=== PATIENT | female | born 1965 | race Caucasian/White ===

== ENCOUNTER → 2016-09-06 | Outpatient (CLI) | payer BC ==
[~2016-09-06] MED LIST: CYMB60CA3 PO; XANA0.5T PO; ZOLO50TA PO
[2016-09-06 07:44] LABS: MEAN CORPUSCULAR HEMOGLOBIN 28.9 pg (27.0-33.0); MEAN CORPUSCULAR HGB CONC 33.6 g/dl (32.0-36.5); RED CELL DISTRIBUTION WIDTH 13.6 % (11.5-14.5); WHITE BLOOD COUNT 6.6 K/mm3 (4.0-10.0)
[2016-09-06 08:09] LABS: ALBUMIN 3.9 GM/DL (3.2-5.2); ALBUMIN/GLOBULIN RATIO 1.26 (1.00-1.93); ALKALINE PHOSPHATASE 95 U/L (45-117); ALT/SGPT 20 U/L (12-78); ANION GAP 9 MEQ/L (8-16); AST/SGOT 14 U/L (15-37); BILIRUBIN,TOTAL 0.5 MG/DL (0.2-1.0); BLOOD UREA NITROGEN 11 MG/DL (7-18); CALCIUM LEVEL 8.9 MG/DL (8.5-10.1); CARBON DIOXIDE LEVEL 26 MEQ/L (21-32); CHLORIDE LEVEL 109 MEQ/L (98-107); CHOLESTEROL LEVEL 194 MG/DL (<200); GLOMERULAR FILTRATION RATE > 60.0 (>51); GLUCOSE, FASTING 99 MG/DL (70-105); SODIUM LEVEL 144 MEQ/L (136-145); TRIGLYCERIDES LEVEL 126 MG/DL (<150)
== END ==
LOC: M LAB 07:04
PROVIDERS: ATTEND Nurse Practitioner Adult Health
DX: Z00.00 Encounter for general adult medical examination without abnormal findings (principal); E03.9 Hypothyroidism, unspecified

== ENCOUNTER → 2016-09-11 | Outpatient (CLI) | payer BC ==
--- NOTE | 2016-09-11 16:26 | REP ---
Digital screening bilateral mammography with CAD: No comparison studies. Findings: Breast parenchyma is predominately fat replaced. There is a nodular density adjacent to some normal appearing vessels in the upper outer quadrant of the right breast. This is asymmetric. It is most likely a normal intramammary lymph node but merits further evaluation. No other mass lesion is seen. No microcalcification is observed. No worrisome skin change. Impression: BIRADS category zero incomplete breast imaging. Asymmetric nodule upper outer quadrant right breast question intramammary lymph node versus cyst. Diagnostic right breast mammography and focused right breast sonography recommended. BI-RADS/ACR category 0 mammogram, incomplete. Additional imaging and/or prior images are needed before a final assessment can be assigned. This mammogram was interpreted with the aid of an FDA-approved computer-aided detection system. The patient states she/he had a clinical breast exam in August 2016 The patient letter being requested is M0. Signed by Bernardo Minaya MD 09/11/2016 04:26 P
--- NOTE | 2016-09-12 09:15 | REP ---
Digital diagnostic unilateral right breast mammography with CAD and focused right breast sonography: History: Screening mammography showed a nodular asymmetric density in the upper outer quadrant of the right breast. Lymph node versus cyst. Diagnostic imaging was recommended. Mammographic findings: Magnified focal spot compression CC, MLO and non magnified true MLO views of the right breast are obtained. A well-circumscribed 7 mm nodule persists adjacent to some vessels in the right lateral breast at approximately 9 o'clock. Breast parenchyma is otherwise predominately fat replaced. Sonographic findings: The right breast is scanned at 9 o'clock. There is a 1.1 x 0.5 x 0.7 cm lymph node with echogenic fat replaced hilum 8.3 cm from the nipple. This is felt to account for the mammographic opacity. No suspicious sonographic abnormality is seen. Impression: BIRADS category 2 benign right breast imaging. Normal-appearing intramammary lymph node seen in the right breast. No suspicious finding. Repeat screening mammography recommended in one year. BI-RADS/ACR category 2 mammogram. Benign finding(s). Routine annual screening mammography (for women over age 40). This mammogram was interpreted with the aid of an FDA-approved computer-aided detection system. The patient states that she/he has not had a clinical breast exam in over a year. The patient letter being requested is M1. Signed by Bernardo Minaya MD 09/12/2016 08:41 A
== END ==
LOC: M RAD 15:00
PROVIDERS: ATTEND Nurse Practitioner Adult Health
DX: Z12.31 Encounter for screening mammogram for malignant neoplasm of breast (principal); R59.0 Localized enlarged lymph nodes
CPT/HCPCS: 76642; G0202; G0206